=== PATIENT | male | born 1955 | race Caucasian/White ===

== ENCOUNTER 2018-04-08 07:01 | Day surgery (SDC) | payer OTHER ==
[~2018-04-08 07:01] MED LIST: TRANEXAMIC ACID 1GM/100ML(PMX) 100 ML IVPB
[2018-04-08] MEDS: LACTATED RINGER'S 1,000 ML IV* (07:48)
[2018-04-08] MEDS: DEXAMETHASONE 1 MG TAB PO (07:48)
[2018-04-08] MEDS: GABAPENTIN 300 MG CAP PO (07:48)
[2018-04-08] MEDS ORDERED: SEVOFLURANE 15 MIN (07:49)
[2018-04-08] MEDS ORDERED: FLUMAZENIL 0.5 MG INJ (07:49)
[2018-04-08] MEDS ORDERED: ROCURONIUM 50 MG INJ (07:49)
[2018-04-08] MEDS ORDERED: CEFAZOLIN 1 GM INJ (07:49)
[2018-04-08] MEDS ORDERED: PROPOFOL 20 ML (07:49)
[2018-04-08] MEDS ORDERED: ROPIVACAINE 0.5 % 30 ML VIAL (07:50)
[2018-04-08] MEDS ORDERED: MIDAZOLAM 1 MG/ML 2 ML INJ (07:50)
[2018-04-08] MEDS ORDERED: ONDANSETRON 4 MG INJ IV (10:00)
[2018-04-08] MEDS ORDERED: LABETALOL HCL 20MG INJ IV (10:00)
[2018-04-08] MEDS ORDERED: MEPERIDINE 25 MG INJ IV (10:00)
[2018-04-08] MEDS ORDERED: EPHEDrine SULFATE 50 MG/5 ML SYG IV (10:00)
[2018-04-08] MEDS ORDERED: DIPHENHYDRAMINE 50 MG INJ IV (10:00)
[2018-04-08] MEDS ORDERED: OXYCODONE/ACETAMINOPHEN (5/325) TAB PO ×2 (10:00)
[2018-04-08] MEDS ORDERED: hydrALAzine 20 MG INJ IV (10:00)
[2018-04-08] MEDS ORDERED: FENTAnyl 50 MCG/ML VIAL IV ×3 (10:00)
[2018-04-08] MEDS ORDERED: HYDROmorphONE 1 MG/5 ML IV SYRINGE IV ×3 (10:00)
[2018-04-08] MEDS ORDERED: IPRATROPIUM (NEB) 0.5 MG/2.5 ML AMP HHN (10:00)
[2018-04-08] MEDS ORDERED: ALBUTEROL 0.083% (NEB) 2.5 MG/3 ML AMP HHN (10:00)
[2018-04-08] MEDS ORDERED: METOCLOPRAMIDE 10 MG INJ IV (10:00)
[2018-04-08] MEDS ORDERED: ONDANSETRON 4 MG INJ (10:04)
[2018-04-08] MEDS ORDERED: KETOROLAC 30 MG INJ (10:04)
[2018-04-08] MEDS ORDERED: DEXAMETHASONE 4 MG/ML 5 ML INJ (10:04)
[2018-04-08] MEDS ORDERED: METOCLOPRAMIDE 10 MG INJ (10:04)
[2018-04-08] MEDS ORDERED: EPHEDrine SULFATE 50 MG/5 ML SYG (10:04)
[2018-04-08] MEDS ORDERED: SUGAMMADEX SODIUM 200 MG/2 ML VIAL IV (10:11)
[2018-04-08] MEDS ORDERED: EPINEPHrine 1 MG INJ ×2 (10:13→10:22)
[2018-04-08] MEDS: BUPIVACAINE 0.5% (SDV) 30 ML, morphine SULFATE (PF) 8 MG, EPINEPHrine 0.3 MG, KETOROLAC... IRR (11:10)
[2018-04-08] MEDS ORDERED: hydrALAzine 20 MG INJ (11:13)
== END 2018-04-08 13:09 | disposition home or self-care (01) ==
LOC: SDS 07:01
DX: M75.102 Unspecified rotator cuff tear or rupture of left shoulder, not specified as traumatic (principal); M25.812 Other specified joint disorders, left shoulder; M65.812 Other synovitis and tenosynovitis, left shoulder; M13.812 Other specified arthritis, left shoulder; I10 Essential (primary) hypertension; E78.5 Hyperlipidemia, unspecified; E03.9 Hypothyroidism, unspecified; J44.9 Chronic obstructive pulmonary disease, unspecified
CPT/HCPCS: 29823

== ENCOUNTER 2018-10-28 08:48 | Inpatient (IN) | payer OTHER ==
[2018-10-28] MEDS: TRANEXAMIC ACID 1GM/100ML(PMX) 100 ML IVPB ×2 (06:00→16:29)
[2018-10-28] MEDS: CEFAZOLIN 2 GM/50 ML (PMX) 50 ML IVPB (06:00)
[~2018-10-28 08:48] MED LIST changes: +BUPIVACAINE 0.5% (SDV) 30 ML, morphine SULFATE (PF) 8 MG, EPINEPHrine 0.3 MG, KETOROLAC... IRR; -TRANEXAMIC ACID 1GM/100ML(PMX) 100 ML IVPB
[2018-10-28] MEDS: GABAPENTIN 300 MG CAP PO ×2 (09:47→21:23)
[2018-10-28] MEDS: DEXAMETHASONE 1 MG TAB PO (09:47)
[2018-10-28] MEDS: LACTATED RINGER'S 1,000 ML IV (09:48)
[2018-10-28] MEDS ORDERED: PROPOFOL 20 ML (10:52)
[2018-10-28] MEDS ORDERED: MIDAZOLAM 1 MG/ML 2 ML INJ (10:53)
[2018-10-28] MEDS ORDERED: ROPIVACAINE 0.2% 20 ML VIAL (10:53)
[2018-10-28] MEDS ORDERED: FENTAnyl 50 MCG/ML VIAL (10:53)
[2018-10-28] MEDS ORDERED: THROMBIN 5000 UNIT (RECOTHROM) VIAL (11:18)
[2018-10-28] MEDS ORDERED: CA CHLORIDE (GM) 10% 10 ML INJ (11:18)
[2018-10-28] MEDS ORDERED: HYDROmorphONE 1 MG/5 ML IV SYRINGE IV ×3 (11:30)
[2018-10-28] MEDS ORDERED: DIPHENHYDRAMINE 50 MG INJ IV ×2 (11:30→14:00)
[2018-10-28] MEDS ORDERED: MEPERIDINE 25 MG INJ IV (11:30)
[2018-10-28] MEDS ORDERED: FENTAnyl 50 MCG/ML VIAL IV ×3 (11:30)
[2018-10-28] MEDS ORDERED: hydrALAzine 20 MG INJ IV (11:30)
[2018-10-28] MEDS ORDERED: LABETALOL HCL 20MG INJ IV (11:30)
[2018-10-28] MEDS ORDERED: ONDANSETRON 4 MG INJ IV ×2 (11:30→14:00)
[2018-10-28] MEDS: POLYMYXIN/BACITRACIN 1L IRRIG (11:38)
[2018-10-28] MEDS ORDERED: ONDANSETRON 4 MG INJ (12:39)
[2018-10-28] MEDS ORDERED: METOCLOPRAMIDE 10 MG INJ (12:39)
[2018-10-28] MEDS ORDERED: CEFAZOLIN 1 GM INJ (12:39)
[2018-10-28] MEDS ORDERED: TRANEXAMIC ACID 1GM/100ML(PMX) 200 ML (12:43)
[2018-10-28] MEDS ORDERED: MAGNESIUM HYDROXIDE 30ML CUP PO (14:00)
[2018-10-28] MEDS ORDERED: HYDROmorphONE 1 MG/ML SYG IV (14:00)
[2018-10-28] MEDS ORDERED: oxyCODONE 5 MG TAB PO ×2 (14:00)
[2018-10-28] MEDS ORDERED: NACL 0.9% 3 ML SYG IV (14:00)
[2018-10-28] MEDS ORDERED: LOPERAMIDE 2 MG CAP PO (14:00)
[2018-10-28] MEDS ORDERED: ZOLPIDEM 5 MG TAB PO (14:00)
[2018-10-28] MEDS: CEFAZOLIN 1 GM/50 ML (PMX) 50 ML IVPB (16:50)
[2018-10-28] MEDS: ACETAMINOPHEN 500 MG TAB PO ×2 (18:00→21:26)
[2018-10-28] MEDS: DEXAMETHASONE 2 MG TAB PO (18:00)
[2018-10-28] MEDS: SENNA/DOCUSATE NA (8.6MG/50MG) TAB PO (21:24)
[2018-10-29] MEDS: CEFAZOLIN 1 GM/50 ML (PMX) 50 ML IVPB ×2 (00:19→06:39)
[2018-10-29] MEDS: DEXAMETHASONE 2 MG TAB PO ×2 (00:19→06:39)
[2018-10-29] MEDS: KETOROLAC 15 MG INJ IV ×2 (02:09→09:11)
[2018-10-29] MEDS: ACETAMINOPHEN 500 MG TAB PO (06:39)
[2018-10-29] MEDS: PANTOPRAZOLE (EC) 40 MG TAB PO (06:39)
[2018-10-29] MEDS: oxyCODONE 5 MG TAB PO (06:47)
[2018-10-29] MEDS: BACLOFEN 10 MG TAB PO (09:08)
[2018-10-29] MEDS: LOSARTAN 50 MG TAB PO (09:08)
[2018-10-29] MEDS: HYDROCHLOROTHIAZIDE 12.5 MG CAP PO (09:08)
[2018-10-29] MEDS: SENNA/DOCUSATE NA (8.6MG/50MG) TAB PO (09:08)
== END 2018-10-29 10:47 | disposition home or self-care (01) | DRG 483 ==
LOC: REC 08:48 → MS1 20:20
PROC: 0RRK00Z Replacement of Left Shoulder Joint with Reverse Ball and Socket Synthetic Substitute, Open Approach (ICD-10-PCS; principal; 2018-10-28 10:30)
DX: M75.102 Unspecified rotator cuff tear or rupture of left shoulder, not specified as traumatic (principal); M13.812 Other specified arthritis, left shoulder; I10 Essential (primary) hypertension; J44.9 Chronic obstructive pulmonary disease, unspecified
CPT/HCPCS: 73030; 86999; 88304; 93005; 97161